=== PATIENT | female | born 1990 | race Caucasian/White ===

== ENCOUNTER 2017-01-25 16:56 | Emergency (ER) | payer SELFPAY ==
[~2017-01-25] VITALS: Ht 160 cm; Wt 95.7 kg
[~2017-01-25 16:56] MED LIST: BIRTH CONTROL PO; FERROUS SULFATE65 MG PO; FISH OIL500 MG PO; FLEXERIL10 MG PO; IBU-8800 MG PO; LORTAB 5/500 501 TAB PO
--- OUTSIDE RECORDS SUMMARY | 2017-01-25 17:04 | External Medical Summary Rpt | CCD ---
Author Author [employer] Organization [employer] Address Unknown Phone Unavailable Purpose Continuity of Care Document - through 2016
--- OUTSIDE RECORDS SUMMARY | 2017-01-25 17:04 | External Medical Summary Rpt | CCD ---
Author Author , JALEN RAO Address Unknown Phone Purpose Continuity of Care Document - through 2016
--- OUTSIDE RECORDS SUMMARY | 2017-01-25 17:05 | External Medical Summary Rpt ---
Author Author JALEN Malagon, [employer] Organization [employer] Address Unknown Phone Unavailable
--- OUTSIDE RECORDS SUMMARY | 2017-01-25 17:05 | External Medical Summary Rpt | CCD ---
Author Author , JALEN RAO Address Unknown Phone [email or web address] Immunization Name Date Rout CVX Reac Dose Comm Prov Is Faci e tion ent ider Refu lity Give sed n Td 08-0 9 999 Hist H149 No H149 (julien 3-20 oric lt), 04 al Info adso rmat rbed ion - Sour ce Unsp ecif ied MMR 05-0 3 999 Hist H149 No H149 1-19 oric 98 al Info rmat ion - Sour ce Unsp ecif ied DTaP 11-1 107 999 Hist H149 No H149 , UF 8-19 oric 97 al Info rmat ion - Sour ce Unsp ecif ied Sharan 11-1 2 999 Hist H149 No H149 o-OP 8-19 oric V 97 al Info rmat ion - Sour ce Unsp ecif ied
--- OUTSIDE RECORDS SUMMARY | 2017-01-25 17:05 | External Medical Summary Rpt | CCD ---
Author Author , JALEN RAO Address Unknown Phone [email or web address] Immunization Name Date Rout CVX Reac Dose [...]
--- NOTE | 2017-01-25 18:08 | Emergency Room Report ---
History of Present Illness Time Seen by [id number] Presenting Problem in Triage Pt arrived:Walked Presenting Problem:PT C/O PAIN IN HER RIGHT CALF THAT GOES INTO HER THIGH. 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 N Clinical Suspician of Infection? N Mental Status: 1 - Regular (Normal Baseline) Sepsis Risk:Low Sepsis Risk Have you (or family members/close friends) recently traveled outside the [place]? N If Yes, where/when: Have you had exposure to infectious disease within the past month? N TB? Other? Specify: Comment Patient complains of RIGHT leg pain, concerned about a possible blood clot. She has had some pain in her medial RIGHT thigh for couple of days. Today at work when she stood up she had a pain that went all the way from her calf up to her thigh. She notices when she dorsiflexes her foot she has a pain that recurs in that area. She has a history of a superficial venous thrombosis in October when she delivered her baby. This was treated with aspirin. She had a Doppler that showed no DVT. No history of DVT. She is not on hormones. The patient's delivery was vaginal. This was done in [place]. She moved here about a month ago. No recent surgeries. No recent immobilization of her leg. ALLERGIES Coded Allergies: No Known Allergies (03/01/15) Home Medications Reported Medications FERROUS SULFATE (Ferrous Sulfate) 325 MG PO BID #60 History Medical History General CAD? No Angina: No [place]: No Hypertension? No Hyperlipidemia? No CHF? No DVT? No PE? No COPD? No Asthma? No Anemia? Yes GERD? No Gastric ulcers? No GI Bleed? No Hernia? No Thyroid Problems? No Hypothyroidism? No CVA? No Seizures? No Diabetes? No Renal Insuffiency? No End Stage Renal Disease? No UTI? Yes Stones? No BPH? No GB Disease: No Nephritic Syndrome? No Asplenia? No Hepatitis? No Sickle Cell Disease? No Arthritis? No Migraines? No Cataracts? No Glaucoma? No MRSA? No HIV? No TB? No Anxiety? Yes Depression? No Cancer? 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 Hx LMP N/A Family History Family Hx Diabetes Yes CAD No Hypertension Yes Hyperlipidemia No Cancer No TB No Social History Smoking Hx Smoker: Never Smoker Tobacco: No Alcohol Alcohol: No Review of Systems All Other Systems Reviewed and Negative Respiratory denies shortness of breath Cardiovascular denies chest pain Musculoskeletal see HPI Psychiatric/Neurological denies numbness, denies weakness Physical Exam Vital Signs Vital Signs Date Time Temp Pulse Resp B/P Pulse O2 O2 Flow FiO2 Ox Delivery Rate 01/25 1859 98.2 72 18 127/89 97 01/25 1854 98.4 98 16 128/77 98 01/25 1717 98.4 98 16 128/77 98 01/25 1658 98.4 98 16 128/77 98 General Appearance no apparent distress Respiratory Status No: respiratory distress. Cardiovascular regular rate/rhythm, normal peripheral pulses Extremities minimal tenderness RIGHT popliteal area. No tenderness of thigh or calf. No cords. No edema. No erythema. Normal pedal pulses. Neurologic alert, no motor/sensory deficits Medical Decision Making LABS/Meds/Orders Pt receiving controlled substance in ED? No Results/Orders Laboratory Tests 01/25/17 1810: Sodium 139, Potassium 3.5, Chloride 105, Carbon Dioxide 29, BUN 9, Creatinine 0.8, Estimated Creat Clear 164, Estimated GFR (MDRD) 88, Glucose 110 H, Calcium 9.3, Total Bilirubin 0.6, AST 24, ALT 26, Alkaline Phosphatase 93, Total Protein 7.2, Albumin 3.9, Globulin 3.3 H, Albumin/Globulin Ratio 1.2, D-Dimer 170, WBC 7.5, RBC 4.47, Hgb 12.6, Hct 38.9, MCV 87.0, RDW 13.9, Plt Count 230, MPV 8.0, Gran % 58.1, Gran # 4.4, Lymphocytes % 36.1, Monocytes % 3.6, Eosinophils % 1.7, Basophils % 0.5, Lymphocytes # 2.7, Monocytes # 0.3, Eosinophils # 0.1, Basophils # 0.0, PUBS MCHC 32.5, MCH 28.2 Orders Procedure Date/time Status D-DIMER 01/25 1755 Complete CBC WITH AUTO DIFF 01/25 1755 Complete CHEM 12 PROFILE 01/25 1755 Complete Progress - The patient is low risk by well's criteria for DVT. D-dimer is normal. Departure Departure Disposition DC Home or Self Care(routine) Clinical Impression Primary Impression: Pain of right lower extremity Condition STABLE Additional Instructions Tylenol or Ibuprofen for pain. Return or see a primary care physician if pain is not improving in the next 2-3 days, if pain is worsening, if RIGHT leg swells or becomes red. ED Critical Care Critical Care No at 2013
--- NOTE | 2017-01-25 18:08 | Emergency Room Report ---
History of Present Illness Time Seen by [id number] Presenting Problem in Triage Pt arrived:Walked Presenting Problem:PT C/O PAIN IN HER RIGHT CALF THAT GOES INTO HER THIGH. LEG IS COOL TO THE TOUCH AND NO REDDNESS NOTED SENT FROM [facility] FOR FURTHER EVAL Onset of symptoms date/time:/ or onset unknown for:MEDICAL HX UNKNOWN Treatment Prior to Arrival: [facility]PRENTICE Provided by: Sepsis Risk Assessment: Temp: 98.4 B/P: 128/77 MAP: 94 Pulse: 98 Resp: 16 Recent fever? N Clinical Suspician of Infection? N Mental Status: 1 - Regular (Normal Baseline) Sepsis Risk:Low Sepsis Risk Have you (or family members/close friends) recently traveled outside the [place]? N If Yes, where/when: Have you had exposure to infectious disease within the past month? N TB? Other? Specify: Comment Patient complains of RIGHT leg pain, concerned about a possible blood clot. She has had some pain in her medial RIGHT thigh for couple of days. Today at work when she stood up she had a pain that went all the way from her calf up to her thigh. She notices when she dorsiflexes her foot she has a pain that recurs in that area. She has a history of a superficial venous thrombosis in October when she delivered her baby. This was treated with aspirin. She had a Doppler that showed no DVT. No history of DVT. She is not on hormones. The patient's delivery was vaginal. This was done in [place]. She moved here about a month ago. No recent surgeries. No recent immobilization of her leg. ALLERGIES Coded Allergies: No Known Allergies (03/01/15) Home Medications Reported Medications FERROUS SULFATE (Ferrous Sulfate) 325 MG PO BID #60 History Medical History General CAD? No Angina: No [place]: No Hypertension? No Hyperlipidemia? No CHF? No DVT? No PE? No COPD? No Asthma? No Anemia? Yes GERD? No Gastric ulcers? No GI Bleed? No Hernia? No Thyroid Problems? No Hypothyroidism? No CVA? No Seizures? No Diabetes? No Renal Insuffiency? No End Stage Renal Disease? No UTI? Yes Stones? No BPH? No GB Disease: No Nephritic Syndrome? No Asplenia? No Hepatitis? No Sickle Cell Disease? No Arthritis? No Migraines? No Cataracts? No Glaucoma? No MRSA? No HIV? No TB? No Anxiety? Yes Depression? No Cancer? 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 Family History Family Hx Diabetes Yes CAD No Hypertension Yes Hyperlipidemia No Cancer No TB No Social History Smoking Hx Smoker: Never Smoker Tobacco: No Alcohol Alcohol: No Review of Systems All Other Systems Reviewed and Negative Respiratory denies shortness of breath Cardiovascular denies chest pain Musculoskeletal see HPI Psychiatric/Neurological denies numbness, denies weakness Physical Exam Vital Signs Vital Signs Date Time Temp Pulse Resp B/P Pulse O2 O2 Flow FiO2 Ox Delivery Rate 01/25 1859 98.2 72 18 127/89 97 01/25 1854 98.4 98 16 128/77 98 01/25 1717 98.4 98 16 128/77 98 01/25 1658 98.4 98 16 128/77 98 General Appearance no apparent distress Respiratory Status No: respiratory distress. Cardiovascular regular rate/rhythm, normal peripheral pulses Extremities minimal tenderness RIGHT popliteal area. No tenderness of thigh or calf. No cords. No edema. No erythema. Normal pedal pulses. Neurologic alert, no motor/sensory deficits Medical Decision Making LABS/Meds/Orders Pt receiving controlled substance in ED? No Results/Orders Laboratory Tests 01/25/17 1810: Sodium 139, Potassium 3.5, Chloride 105, Carbon Dioxide 29, BUN 9, Creatinine 0.8, Estimated Creat Clear 164, Estimated GFR (MDRD) 88, Glucose 110 H, Calcium 9.3, Total Bilirubin 0.6, AST 24, ALT 26, Alkaline Phosphatase 93, Total Protein 7.2, Albumin 3.9, Globulin 3.3 H, Albumin/Globulin Ratio 1.2, D-Dimer 170, WBC 7.5, RBC 4.47, Hgb 12.6, Hct 38.9, MCV 87.0, RDW 13.9, Plt Count 230, MPV 8.0, Gran % 58.1, Gran # 4.4, Lymphocytes % 36.1, Monocytes % 3.6, Eosinophils % 1.7, Basophils % 0.5, Lymphocytes # 2.7, Monocytes # 0.3, Eosinophils # 0.1, Basophils # 0.0, PUBS MCHC 32.5, MCH 28.2 Orders Procedure Date/time Status D-DIMER 01/25 1755 Complete CBC WITH AUTO DIFF 01/25 1755 Complete CHEM 12 PROFILE 01/25 1755 Complete Progress - The patient is low risk by well's criteria for DVT. D-dimer is normal. Departure Departure Disposition DC Home or Self Care(routine) Clinical Impression Primary Impression: Pain of right lower extremity Condition STABLE Additional Instructions Tylenol or Ibuprofen for pain. Return or see a primary care physician if pain is not improving in the next 2-3 days, if pain is worsening, if RIGHT leg swells or becomes red. ED Critical Care Critical Care No at 2013
[2017-01-25 18:22] LABS: HEMOGLOBIN 12.6 g/dL (12.2-16.2); LYMPH # 2.7 K/mm3 (0.7-4.5); LYMPH % 36.1 % (10-50.0)
[2017-01-25 18:59] VITALS: BP 127/89
== END 2017-01-25 19:00 | disposition home or self-care (01) ==
LOC: ER 16:56 → UTC 16:56 → ER 17:02 → UTC 17:02 → ER 19:00
PROVIDERS: Emergency Medicine
DX: M79.661 Pain in right lower leg (principal); Z86.718 Personal history of other venous thrombosis and embolism; D64.9 Anemia, unspecified; F41.9 Anxiety disorder, unspecified